=== PATIENT | female | born 1945 | race Two or more races ===

== ENCOUNTER 2017-05-24 13:50 | Observation (INO) | payer MEDICARE, OTHER ==
[~2017-05-24] VITALS: Ht 165.1 cm; Wt 67.1 kg
[2017-05-24] MEDS ORDERED: DIOVAN HCT 3201 EAC1 ORAL (14:10)
[2017-05-24] MEDS ORDERED: PRAVASTATIN SOD20 M1 ORAL (14:10)
[2017-05-24] MEDS ORDERED: METFORMIN HCL500 M1 ORAL (14:10)
[2017-05-24] MEDS ORDERED: AMLODIPINE BESY10 MG ORAL (14:10)
--- NOTE | 2017-05-24 14:42 | Emergency Room Report ---
History of Present Illness General Chief Complaint: Abnormal Labs Source: Patient Present Illness HPI Patient presents emergency department today complaint generalized weakness. Patient's primary care physician is Dr. Reymundo Quezada. Patient states that she has a history of anemia. She presents her complaining of generalized weakness. Her hemoglobin apparently has been decreasing over the week. Patient denies any rectal bleeding but states that she has a history of Hemoccult positive stools. Patient denies any melena. Symptoms noted to be severe. Patient feels very weak and fatigued at times short of breath with decreased exercise tolerance. No other modifying factors. No other associated signs and symptoms. No other complaints were noted. Allergies: Coded Allergies: No Known Allergies (Unverified , 05/24/17) Patient History Past Medical History: DM, HTN Past Surgical History: none Pertinent Family History: none Social History: Denies: smoking, alcohol use, drug use Reviewed Nursing Documentation: PMH: Agreed, PSxH: Agreed Nursing Documentation-PMH Past Medical History: No History, Except For Hx Hypertension: Yes Hx Diabetes: Yes Review of Systems All Other Systems: negative except mentioned in HPI Physical Exam Vital Signs Date Time Temp Pulse Resp B/P (MAP) Pulse Ox O2 Delivery O2 Flow Rate FiO2 05/24/17 14:05 98.2 93 18 157/69 97 Room Air 98.2 Sp02 EP Interpretation: reviewed, normal General Appearance: normal inspection, well appearing, no apparent distress, alert Head: atraumatic Eyes: bilateral eye normal inspection ENT: normal ENT inspection, hearing grossly normal, normal voice Neck: normal inspection, full range of motion, supple, no bony tend Respiratory: normal inspection, lungs clear, normal breath sounds, no respiratory distress, no retraction, no wheezing Cardiovascular #1: regular rate, rhythm, no edema Gastrointestinal: normal inspection, normal bowel sounds, non tender, soft, no guarding, no hernia Genitourinary: no CVA tenderness Musculoskeletal: normal inspection, back normal, normal range of motion Neurologic: normal inspection, alert, responsive, speech normal Psychiatric: normal inspection, judgement/insight normal, mood/affect normal Skin: pallor Medical Decision Making Diagnostic Impression: Primary Impression: Anemia Additional Impressions: UTI (urinary tract infection) GI bleeding ER Course Patient presents emergency department today complaining of weakness and GI bleeding. Patient apparently has Hemoccult positive stools. Patient states that her hemoglobin has been dropping and her doctor told her to come in. She denies any nausea vomiting diarrhea chills. She complains of some generalized weakness and feeling pale. Denies any chest pain or shortness of breath. She states that she's of fatigue that she can't walk. No other complaints are noted. Symptoms noted to be severe. Patient's laboratory workup does show indeed anemia. Patient's urine was positive UTI. Given patient's significant symptoms are bad status of the patient require monitoring and possible evaluation by GI. Patient has not had endoscopy before but she did have a colonoscopy. Patient is capitated to [facility] but was approved for admission here according to the hospital his admission record and the hospitalist assignment is Dr. Mclain. I discussed this case with Dr. Mclain as was Dr. gandara. Patient will be placed on observation status in the hospital. Labs Test 05/24/17 14:40 05/24/17 14:55 White Blood Count 6.3 K/UL (4.8-10.8) Red Blood Count 3.18 M/UL (4.20-5.40) Hemoglobin 9.3 G/DL (12.0-16.0) Hematocrit 28.6 % (37.0-47.0) Mean Corpuscular Volume 90 FL (80-99) Mean Corpuscular Hemoglobin 29.2 PG (27.0-31.0) Mean Corpuscular Hemoglobin Concent 32.4 G/DL (32.0-36.0) Red Cell Distribution Width 13.3 % (11.6-14.8) Platelet Count 281 K/UL (150-450) Mean Platelet Volume 8.0 FL (6.5-10.1) Neutrophils (%) (Auto) 69.8 % (45.0-75.0) Lymphocytes (%) (Auto) 19.6 % (20.0-45.0) Monocytes (%) (Auto) 8.8 % (1.0-10.0) Eosinophils (%) (Auto) 1.0 % (0.0-3.0) Basophils (%) (Auto) 0.9 % (0.0-2.0) Prothrombin Time 9.5 SEC (9.30-11.50) Prothromb Time International Ratio 0.9 (0.9-1.1) Activated Partial Thromboplast Time 23 SEC (23-33) Sodium Level 134 MMOL/L (136-145) Potassium Level 4.1 MMOL/L (3.5-5.1) Chloride Level 102 MMOL/L (98-107) Carbon Dioxide Level 27 MMOL/L (21-32) Anion Gap 5 mmol/L (5-15) Blood Urea Nitrogen 34 mg/dL (7-18) Creatinine 1.3 MG/DL (0.55-1.30) Estimat Glomerular Filtration Rate mL/min (>60) Glucose Level 250 MG/DL (74-106) Calcium Level 10.3 MG/DL (8.5-10.1) Total Bilirubin 0.2 MG/DL (0.2-1.0) Aspartate Amino Transf (AST/SGOT) 15 U/L (15-37) Alanine Aminotransferase (ALT/SGPT) 18 U/L (12-78) Alkaline Phosphatase 94 U/L (46-116) Total Protein 9.1 G/DL (6.4-8.2) Albumin 3.5 G/DL (3.4-5.0) Globulin 5.6 g/dL Albumin/Globulin Ratio 0.6 (1.0-2.7) Lipase 268 U/L (73-393) Urine Color Pale yellow Urine Appearance Clear Urine pH 5 (4.5-8.0) Urine Specific [place] 1.010 (1.005-1.035) Urine Protein 2+ (NEGATIVE) Urine Glucose (UA) Negative (NEGATIVE) Urine Ketones Negative (NEGATIVE) Urine Occult Blood 1+ (NEGATIVE) Urine Nitrite Negative (NEGATIVE) Urine Bilirubin Negative (NEGATIVE) Urine Urobilinogen Normal MG/DL (0.0-1.0) Urine Leukocyte Esterase 2+ (NEGATIVE) Urine RBC 0-2 /HPF (0 - 2) Urine WBC 30-40 /HPF (0 - 2) Urine Squamous Epithelial Cells Few /LPF (NONE/OCC) Urine Bacteria Many /HPF (NONE) Last Vital Signs Date Time Temp Pulse Resp B/P (MAP) Pulse Ox O2 Delivery O2 Flow Rate FiO2 05/24/17 14:05 98.2 93 18 157/69 97 Room Air 98.2 Status: improved Disposition: PLACE IN OBSERVATION Condition: Serious LEONORA STEIN M.D. May 24, 2017 14:42
[2017-05-24 14:57] VITALS: BP 148/62
[2017-05-24 15:18] LABS: ANION GAP 5 mmol/L (5-15); BLOOD UREA NITROGEN 34 mg/dL (7-18); CALCIUM 10.3 MG/DL (8.5-10.1); CARBON DIOXIDE 27 MMOL/L (21-32); CHLORIDE 102 MMOL/L (98-107); CREATININE 1.3 MG/DL (0.55-1.30); POTASSIUM 4.1 MMOL/L (3.5-5.1); SODIUM 134 MMOL/L (136-145)
[2017-05-24 15:23] LABS: BASOPHILS % (AUTO) 0.9 % (0.0-2.0); HEMATOCRIT 28.6 % (37.0-47.0); HEMOGLOBIN 9.3 G/DL (12.0-16.0); LYMPHOCYTES % (AUTO) 19.6 % (20.0-45.0); MEAN CORPUSCULAR VOLUME 90 FL (80-99); MONOCYTES % (AUTO) 8.8 % (1.0-10.0); NEUTROPHILS % (AUTO) 69.8 % (45.0-75.0); PLATELET COUNT 281 K/UL (150-450); RED BLOOD COUNT 3.18 M/UL (4.20-5.40); RED CELL DISTRIBUTION WIDTH 13.3 % (11.6-14.8); WHITE BLOOD COUNT 6.3 K/UL (4.8-10.8)
[2017-05-24 15:24] LABS: ALANINE AMINOTRANSFERASE 18 U/L (12-78); ALBUMIN 3.5 G/DL (3.4-5.0); ALBUMIN/GLOBULIN RATIO 0.6 (1.0-2.7); ALKALINE PHOSPHATASE 94 U/L (46-116); ASPARTATE AMINO TRANSFERASE 15 U/L (15-37); BILIRUBIN,TOTAL 0.2 MG/DL (0.2-1.0)
[2017-05-24 15:40] LABS: INR 0.9 (0.9-1.1)
[2017-05-24 15:42] LABS: APPEARANCE,URINE CLEAR; BILIRUBIN, URINE NEGATIVE (NEGATIVE); COLOR,URINE PALE YELLOW; GLUCOSE, URINE (UA) NEGATIVE (NEGATIVE); KETONES,URINE NEGATIVE (NEGATIVE); LEUKOCYTE ESTERASE ,URINE 2+ (NEGATIVE); NITRITE,URINE NEGATIVE (NEGATIVE); PH,URINE 5 (4.5-8.0); PROTEIN,URINE 2+ (NEGATIVE); UROBILINOGEN,URINE NORMAL MG/DL (0.0-1.0)
[2017-05-24] MEDS ORDERED: cefTRIAXone 1 GM in NS 55 ML IVPB ONE (16:30)
[2017-05-24 16:41] VITALS: BP 155/61
[2017-05-24 18:23] VITALS: BP 157/72
[2017-05-24 20:00] VITALS: BP 153/83
[2017-05-25] VITALS: BP 141/86
--- NOTE | 2017-05-25 02:15 | Consultation ---
DATE OF CONSULTATION: 05/24/2017 CONSULTING PHYSICIAN: Dayo Borges M.D. REFERRING PHYSICIAN: Babak Owusu M.D. CHIEF COMPLAINT: Anemia and weight loss. HISTORY OF PRESENT ILLNESS: This is a very pleasant 71-year-old female with past medical history of diabetes and hypertension, was seen by primary care physician for complaint of weakness. The patient had also drop in hemoglobin and hematocrit. Stool OB positive. Also UA apparently had some blood. So, the patient was admitted to the hospital for evaluation. PAST MEDICAL HISTORY: 1. Hypertension. 2. Diabetes. 3. Hypercholesterolemia. 4. History of breast cancer 30 years ago. 5. Arthritis. 6. Anemia. PAST SURGICAL HISTORY: Back surgery and right mastectomy. MEDICATIONS: Please see medication reconciliation list. ALLERGIES: No known drug allergies. SOCIAL HISTORY: The patient denies any tobacco, alcohol, or illicit drug abuse. FAMILY HISTORY: Father had colon cancer. REVIEW OF SYSTEMS: A 10-point review of systems was performed and pertinent positives in history of present illness. PHYSICAL EXAMINATION: VITAL SIGNS: Temperature is 98.2 degrees, pulse of 79, respirations 16, blood pressure is 157/72. HEENT: Normocephalic and atraumatic. Mild pallor. NECK: Supple. No lymphadenopathy. CARDIOVASCULAR: Regular rhythm. Plus S1 and S2. LUNGS: Clear breath sounds bilaterally. ABDOMEN: Positive bowel sounds. Soft, nontender. No rebound. No guarding. No peritoneal signs. EXTREMITIES: No cyanosis. No clubbing. No edema. LABORATORY DATA: Sodium 134, potassium 4.1, BUN is 34, creatinine is 1.3. White count is 6.3, hemoglobin 9.3, hematocrit 28, platelet count is 281. ASSESSMENT AND PLAN: 1. Anemia, normocytic. 2. Weight loss. 3. Prior history of breast cancer. PLAN: According to the patient, she had a colonoscopy a year ago by Dr. Montes and apparently was negative. The patient had elevated calcium level, history of breast cancer, and some weight loss concerning for recurrent malignancy. Plan to order a CT of the abdomen and pelvis. Order stool for OB. Anemia workup. Check CEA. We will plan for endoscopy and colonoscopy on Saturday if needed. I want to thank Dr. Owusu for this kind referral. Dayo Marguerite Borges DR: Funmi JOB#: [id number] CC: Babak Owusu M.D.; Fax#: [phone]
[2017-05-25 04:00] VITALS: BP 150/83
[2017-05-25 07:28] LABS: BASOPHILS % (AUTO) 0.6 % (0.0-2.0); EOSINOPHILS % (AUTO) 1.5 % (0.0-3.0); HEMATOCRIT 27.7 % (37.0-47.0); LYMPHOCYTES % (AUTO) 25.6 % (20.0-45.0); MEAN CORPUSCULAR VOLUME 89 FL (80-99); MONOCYTES % (AUTO) 10.8 % (1.0-10.0); NEUTROPHILS % (AUTO) 61.6 % (45.0-75.0); PLATELET COUNT 268 K/UL (150-450); RED CELL DISTRIBUTION WIDTH 13.1 % (11.6-14.8); WHITE BLOOD COUNT 5.4 K/UL (4.8-10.8)
[2017-05-25 07:48] LABS: ALANINE AMINOTRANSFERASE 17 U/L (12-78); ALBUMIN 3.2 G/DL (3.4-5.0); ALBUMIN/GLOBULIN RATIO 0.6 (1.0-2.7); ALKALINE PHOSPHATASE 82 U/L (46-116); ANION GAP 7 mmol/L (5-15); ASPARTATE AMINO TRANSFERASE 16 U/L (15-37); BILIRUBIN,TOTAL 0.2 MG/DL (0.2-1.0); BLOOD UREA NITROGEN 28 mg/dL (7-18); CALCIUM 10.3 MG/DL (8.5-10.1); CARBON DIOXIDE 27 MMOL/L (21-32); CHLORIDE 106 MMOL/L (98-107); POTASSIUM 4.3 MMOL/L (3.5-5.1); SODIUM 140 MMOL/L (136-145)
[2017-05-25 07:56] LABS: INR 0.9 (0.9-1.1)
[2017-05-25 08:20] LABS: % IRON SATURATION 26 % (15-50); IRON 70 ug/dL (50-175); TOTAL IRON BINDING CAPACITY 267 ug/dL (250-450)
[2017-05-25 09:00] VITALS: BP 153/80
--- NOTE | 2017-05-25 09:39 | General Progress Note ---
Assessment/Plan Problem List: (1) Anemia ICD Codes: D64.9 - Anemia, unspecified SNOMED: 783726477 (2) GI bleeding ICD Codes: K92.2 - Gastrointestinal hemorrhage, unspecified SNOMED: 69667825 Assessment/Plan ppi fu stool ob fu CT EGD per patient is scheduled as out patient Subjective ROS Limited/Unobtainable: Yes Allergies: Coded Allergies: No Known Allergies (Unverified , 05/24/17) Subjective no event Objective Last 24 Hour Vital Signs Date Time Temp Pulse Resp B/P (MAP) Pulse Ox O2 Delivery O2 Flow Rate FiO2 05/25/17 04:00 98.1 87 20 150/83 95 Room Air 98.1 05/25/17 00:00 98.1 87 19 141/86 96 Room Air 98.1 05/24/17 20:00 98.1 85 18 153/83 96 Room Air 98.1 05/24/17 19:31 98.2 79 16 157/72 100 Room Air 98.2 05/24/17 18:23 98.2 79 16 157/72 100 Room Air 98.2 05/24/17 16:41 98.3 87 16 155/61 99 Room Air 98.3 05/24/17 14:57 77 16 148/62 93 Room Air 05/24/17 14:05 98.2 93 18 157/69 97 Room Air 98.2 Intake and Output 05/24/17 05/25/17 19:00 07:00 Intake Total 55 ml 0 ml Balance 55 ml 0 ml Intake Oral 0 ml IV Total 55 ml # Voids 3 Laboratory Tests 05/24/17 14:40: White Blood Count 6.3, Red Blood Count 3.18L, Hemoglobin 9.3L, Hematocrit 28.6L , Mean Corpuscular Volume 90, Mean Corpuscular Hemoglobin 29.2, Mean Corpuscular Hemoglobin Concent 32.4, Red Cell Distribution Width 13.3, Platelet Count 281, Mean Platelet Volume 8.0, Neutrophils (%) (Auto) 69.8, Lymphocytes (% ) (Auto) 19.6L, Monocytes (%) (Auto) 8.8, Eosinophils (%) (Auto) 1.0, Basophils (%) (Auto) 0.9, Prothrombin Time 9.5, Prothromb Time International Ratio 0.9, Activated Partial Thromboplast Time 23, Sodium Level 134L, Potassium Level 4.1, Chloride Level 102, Carbon Dioxide Level 27, Anion Gap 5, Blood Urea Nitrogen 34H, Creatinine 1.3, Estimat Glomerular Filtration Rate , Glucose Level 250H, Calcium Level 10.3H, Total Bilirubin 0.2, Aspartate Amino Transf (AST/SGOT) 15, Alanine Aminotransferase (ALT/SGPT) 18, Alkaline Phosphatase 94, Total Protein 9.1H, Albumin 3.5, Globulin 5.6, Albumin/Globulin Ratio 0.6L, Lipase 268, Thyroid Stimulating Hormone (TSH) 1.947 05/24/17 14:55: Urine Color Pale yellow, Urine Appearance Clear, Urine pH 5, Urine Specific [place] 1.010, Urine Protein 2+H, Urine Glucose (UA) Negative, Urine Ketones Negative, Urine Occult Blood 1+H, Urine Nitrite Negative, Urine Bilirubin Negative, Urine Urobilinogen Normal, Urine Leukocyte Esterase 2+H, Urine RBC 0-2 , Urine WBC 30-40H, Urine Squamous Epithelial Cells Few, Urine Bacteria ManyH 05/25/17 05:35: White Blood Count 5.4, Red Blood Count 3.10L, Hemoglobin 9.0L, Hematocrit 27.7L , Mean Corpuscular Volume 89, Mean Corpuscular Hemoglobin 29.0, Mean Corpuscular Hemoglobin Concent 32.4, Red Cell Distribution Width 13.1, Platelet Count 268, Mean Platelet Volume 7.5, Neutrophils (%) (Auto) 61.6, Lymphocytes (% ) (Auto) 25.6, Monocytes (%) (Auto) 10.8H, Eosinophils (%) (Auto) 1.5, Basophils (%) (Auto) 0.6, Prothrombin Time 9.6, Prothromb Time International Ratio 0.9, Sodium Level 140, Potassium Level 4.3, Chloride Level 106, Carbon Dioxide Level 27, Anion Gap 7, Blood Urea Nitrogen 28H, Creatinine 1.0, Estimat Glomerular Filtration Rate , Glucose Level 130#H, Calcium Level 10.3H, Total Bilirubin 0.2, Aspartate Amino Transf (AST/SGOT) 16, Alanine Aminotransferase ( ALT/SGPT) 17, Alkaline Phosphatase 82, Total Protein 8.7H, Albumin 3.2L, Globulin 5.5, Albumin/Globulin Ratio 0.6L, Iron Level 70, Total Iron Binding Capacity 267, Percent Iron Saturation 26, Unsaturated Iron Binding 197, Folate 18.4, Free Thyroxine 0.89 05/25/17 07:30: Stool Occult Blood [Pending] Height (Feet): 5 Height (Inches): 5.00 Weight (Pounds): 148 General Appearance: alert EENT: normal ENT inspection Neck: supple Cardiovascular: normal rate Respiratory/Chest: lungs clear Abdomen: normal bowel sounds, non tender, soft Extremities: non-tender TRACI RUIZ May 25, 2017 09:39
--- NOTE | 2017-05-25 09:49 | History & Physical ---
History and Physical History & Physicial HISTORY OF PRESENT ILLNESS: This is a very pleasant 71-year-old female with past medical history of diabetes and hypertension, was seen by primary care physician for complaint of weakness. The patient had also drop in hemoglobin and hematocrit. Stool OB positive. Also UA apparently had some blood. So, the patient was admitted to the hospital for evaluation. She has previously had a colonoscopy as well as an episode of bowel obstruction one year ago PAST MEDICAL HISTORY: 1. Hypertension. 2. Diabetes. 3. Hypercholesterolemia. 4. History of breast cancer 30 years ago. 5. Arthritis. 6. Anemia. PAST SURGICAL HISTORY: Back surgery and right mastectomy. MEDICATIONS: Please see medication reconciliation list. ALLERGIES: No known drug allergies. SOCIAL HISTORY: The patient denies any tobacco, alcohol, or illicit drug abuse. FAMILY HISTORY: Father had colon cancer. REVIEW OF SYSTEMS: A 10-point review of systems was performed and pertinent positives in history of present illness. PHYSICAL EXAMINATION: VITAL SIGNS: Temperature is 98.2 degrees, pulse of 79, respirations 16, blood pressure is 157/72. HEENT: Normocephalic and atraumatic. Mild pallor. NECK: Supple. No lymphadenopathy. CARDIOVASCULAR: Regular rhythm. Plus S1 and S2. LUNGS: Clear breath sounds bilaterally. ABDOMEN: Positive bowel sounds. Soft, nontender. No rebound. No guarding. No peritoneal signs. EXTREMITIES: No cyanosis. No clubbing. No edema. LABORATORY DATA: Sodium 134, potassium 4.1, BUN is 34, creatinine is 1.3. White count is 6.3, hemoglobin 9.3, hematocrit 28, platelet count is 281. ASSESSMENT AND PLAN: 1. Anemia, normocytic. 2. Weight loss. 3. Prior history of breast cancer. PLAN: According to the patient, she had a colonoscopy a year ago by Dr. Montes and apparently was negative. The patient had elevated calcium level, history of breast cancer, and some weight loss concerning for recurrent malignancy. Plan to order a CT of the abdomen and pelvis. Likely dc home today after CT Babak Owusu MD May 25, 2017 09:49
[2017-05-25 11:36] VITALS: BP 140/79
[2017-05-25] MEDS ORDERED: cefTRIAXone 1 GM in NS 55 ML IVPB SCH (16:00)
[2017-05-25] MEDS ORDERED: cefTRIAXone 1 GM in D5W 55 ML IVPB SCH (16:00)
--- NOTE | 2017-06-01 07:41 | Discharge Summary ---
Discharge Summary Hospital Course Date of Admission May 24, 2017 at 17:31 Date of Discharge May 25, 2017 at 14:00 Admitting Diagnosis anemia HPI Jeanine Rubio is a 71 year old female who was admitted on May 24, 2017 at 17: 31 for Anemia Hospital Course dc summary #[id number] Discharge Medications Continued Medications: Amlodipine Besylate* (Amlodipine Besylate*) 10 Mg Tablet 10 MG ORAL DAILY, TAB Metformin Hcl* (Metformin Hcl*) 500 Mg Tablet 500 MG ORAL TID, TAB Pravastatin Sod* (Pravastatin Sod*) 20 Mg Tablet 20 MG ORAL BEDTIME, TAB Valsartan/Hydrochlorothiazide 320-25MG (Diovan Hct 320-25 Mg Tablet) 1 Each Tablet 1 TAB ORAL DAILY, TAB Discharge Condition Upon Discharge: stable Discharge Disposition Patient was discharged to Home (01) Discharge Diagnoses: Discharge Instructions Discharge Instructions Special Instructions I have been assigned to complete a D/C Summary on this account. I was not involved in the patient management Magdalene Araujo NP ([place]) Jun 01, 2017 07:41
--- NOTE | 2017-06-03 09:30 | Discharge Summary 2 SIG ---
DATE OF ADMISSION: 05/25/2015 DATE OF DISCHARGE: 05/26/2015 REASON FOR ADMISSION: 70-year-old female with past medical history of hypertension, high cholesterol, diabetes, and history of breast cancer with right mastectomy years ago, presented to emergency department with a complaint of generalized weakness. Upon evaluation, the patient was found to be anemic with hemoglobin -9.3 and hematocrit -28.6. MCV -90.The patient reported that her prior stool was positive for OB, but she denied any black stools. No melena or hematemesis. She felt weak, fatigued, and short of breath. She reported colonoscopy about a year ago, which was negative. Noted BUN -34 and creatinine -1.3. Urinalysis with evidence of urinary tract infection. Calcium elevated - 10.3. The patient also reported some weight loss. The patient was admitted with diagnoses of normocytic anemia, weight loss, history of breast cancer, and urinary tract infection. HOSPITAL COURSE: The patient was admitted. GI consult was requested. Home medications were resumed. Anemia workup revealed stable iron panel. Folate level within normal limits. Next day, hemoglobin -9.0 and hematocrit- 27.7. Stool OB was negative. Gastrointestinal specialist ordered CT of the abdomen and pelvis to rule out recurrent malignancy. The patient had elevated calcium level, history of breast cancer and some weight loss, which was concerning for recurrent malignancy. CT of the abdomen and pelvis revealed no acute abnormality. 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 Differential possibilities include adenopathy due to of lymphoproliferative disorder or metastatic tumor, exophytic pancreatic mass, tumor of biliary origin. Further evaluation with endoscopic ultrasound or contrast MRI may be useful. Small osteolytic lumbar spine lesions. Could indicate metabolic bone disorder, but also concerning for metastatic deposits. The patient was on antibiotic for urinary tract infection. The patient was stable for discharge home. Outpatient further workup for mass and osteolytic spine lesions. Follow up with the primary care provider and GI as outpatient. FINAL DIAGNOSES: 1. Normocytic anemia. 2. Weight loss. 3. History of breast cancer. 4. Urinary tract infection with Escherichia coli. DISCHARGE MEDICATIONS: See medication reconciliation list. DISCHARGE INSTRUCTIONS: The patient was discharged home. Follow up with primary care provider and GI. Babak Owusu M.D. I have been assigned to dictate discharge summary on this account and I was not involved in the patient's management. Magdalene Araujo ([place]anchtein) NNory DR: JENNIFER JOB#: [id number] CC: RADHA
--- NOTE | 2017-06-03 16:39 | Diagnostic Imaging Report ---
Clinical Indication: Abdominal pain Technique: No oral contrast, reason not stated IV administration nonionic contrast. Venous phase spiral acquisition obtained through the abdomen and pelvis. Multiplanar reconstructions were generated. Total dose length product 667 mGycm. CTDIvol(s) 14 mGy. Dose reduction achieved using automated exposure control Comparison: none Findings: In the skyler hepatis, there is a low-attenuation mass, the superior margins of which are somewhat indistinct, but appears to measure approximate 4.5 x 2.5 x 3 cm. It demonstrates a central calcification. There is adjacent non masslike infiltration of the periportal fat extending into the skyler hepatis. This lesion appears to indent the medial wall of the duodenum but appears to be separate from it and also appears to indent the right lateral wall of the pancreatic head. Although a distinct fat plane is not demonstrated, it does appear to be extrapancreatic. It appears to be separate from the bile ducts as well. There is no biliary ductal dilatation. The gallbladder is unremarkable. No gallstones are demonstrated. The liver is unremarkable, no focal abnormality. The remainder of the pancreas is unremarkable. The spleen, adrenals, left kidney are unremarkable. There is equivocal focal low attenuation in the interpolar region of the right kidney. No pelvic or retroperitoneal mass or adenopathy. No mesenteric mass or adenopathy. Somewhat heterogeneous attenuation and small osteolytic foci are seen within the lumbar vertebral bodies. There are degenerative changes of the lumbosacral junction There is some scarring or atelectasis at the left lung base The appendix is somewhat prominent, but there is no infiltration of the periappendiceal fat. The colon is stool-filled. There are equivocal colonic diverticula. No evidence of diverticulitis. No small bowel distention. No free or loculated intraperitoneal air or fluid. Impression: No acute abnormality 4.5 x 2.5 x 3 cm mass in the skyler hepatis with infiltration of the periportal fat and a central calcification. This appears adjacent to but separate from the pancreatic head, bile ducts, and duodenum. Differential possibilities include adenopathy due to of lymphoproliferative disorder or metastatic tumor, exophytic pancreatic mass, tumor of biliary origin. Further evaluation with endoscopic ultrasound or contrast MRI may be useful Small osteolytic lumbar spine lesions. Could indicate metabolic bone disorder, but also concerning for metastatic deposits Very equivocal subtle low attenuation in the interpolar region of the right kidney, if real could indicate focal nephritis The above findings are not mentioned on the [facility] preliminary report. These findings were reported to Dr. Owusu by phone at the time of interpretation Left basilar atelectasis or scarring Very questionable diverticulosis. No evidence of diverticulitis Degenerative lumbar spondylosis The CT scanner at [facility] is accredited by the [employer] and the scans are performed using protocols designed to limit radiation exposure to as low as reasonably achievable to attain images of sufficient resolution adequate for diagnostic evaluation.
== END 2017-05-25 14:00 | disposition home or self-care (01) ==
LOC: EMR 15:20 → 4W 17:31 → EDBEDREQ 17:40
DX: D64.9 Anemia, unspecified (principal); N39.0 Urinary tract infection, site not specified; K92.2 Gastrointestinal hemorrhage, unspecified; I10 Essential (primary) hypertension; E11.9 Type 2 diabetes mellitus without complications; E78.00 Pure hypercholesterolemia, unspecified; Z85.3 Personal history of malignant neoplasm of breast; M19.90 Unspecified osteoarthritis, unspecified site; Z90.11 Acquired absence of right breast and nipple; Z80.0 Family history of malignant neoplasm of digestive organs; R63.4 Abnormal weight loss
CPT/HCPCS: 36415; 74177; 80053; 81003; 82270; 82378; 82746; 82962; 83540; 83550; 83690; 84439; 84443; 85025; 85610; 85730; 86850; 86900; 86901; 87086; 87181; 99285; J0696; Q9967; G0378